=== PATIENT | female | born 1970 | race Caucasian/White ===

== ENCOUNTER 2017-12-31 02:21 | Emergency (ER) | payer SELFPAY ==
[~2017-12-31] VITALS: Ht 157.5 cm; Wt 89.8 kg
[~2017-12-31 02:21] MED LIST: METF1000 PO; NOVN SUBQ; NOVR SUBQ; SIMV20TA1 PO
[2017-12-31 02:28] VITALS: BP 149/85
--- NOTE | 2017-12-31 02:30 | NUR ---
TO ER BED 2
--- NOTE | 2017-12-31 02:33 | NUR ---
47 Y/O F W/C/O DIZZINESS, NAUSEA/VOMITING/ ABD PAIN, AND R EAR PAIN X 3 DAYS. NO OTHER S/S OF DISTRESS NOTED. ER MD MADE AWARE.
[2017-12-31] MEDS ORDERED: KETOROLAC 30 MG/ML VIAL IM ONE (02:50)
[2017-12-31] MEDS ORDERED: ONDANSETRON 4 MG ODT PO ONE (02:50)
[2017-12-31] MEDS ORDERED: PHENYLEPHRINE 0.5% 15 ML BTL NS ONE (02:50)
[2017-12-31] MEDS ORDERED: MECLIZINE 25 MG TAB PO ONE (03:05)
[2017-12-31 03:32] VITALS: BP 139/78
--- NOTE | 2017-12-31 03:32 | NUR ---
Patient discharged with v/s stable. Written and verbal after care instructions given and explained. Patient alert, oriented and verbalized understanding of instructions. Ambulatory with steady gait. All questions addressed prior to discharge. ID band removed. Patient advised to follow up with PMD. Rx of AMOXICILLIN, MEZCLINE, AND ZOFRAN given. Patient educated on indication of medication including possible reaction and side effects. Opportunity to ask questions provided and answered.
== END 2017-12-31 03:32 | disposition home or self-care (01) ==
LOC: MED 02:21
DX: H66.91 Otitis media, unspecified, right ear (principal); R42 Dizziness and giddiness; R11.0 Nausea; I10 Essential (primary) hypertension; E11.9 Type 2 diabetes mellitus without complications; Z79.84 Long term (current) use of oral hypoglycemic drugs
CPT/HCPCS: 96372; 99284; J1885; J8597; S0119

== ENCOUNTER 2019-05-30 00:01 | Emergency (ER) | payer MEDICAID ==
[~2019-05-30] VITALS: Ht 157.5 cm; Wt 91.2 kg
[2019-05-30 00:05] VITALS: BP 183/93
--- NOTE | 2019-05-30 00:15 | NUR ---
PT AMBULATED TO THE LOBBY, VSS
--- NOTE | 2019-05-30 00:44 | NUR ---
PT AMBULATED TO BED #8
--- NOTE | 2019-05-30 00:45 | NUR ---
49 Y/O F PRESENTS TO ED WITH C/O TOOTHACHE X1 MONTH. CITIZ[place] SPEAKING ONLY. 8/10 PAIN, ACHING AND THROBBING. PAIN LOCATED LT SIDE OF MOUTH, RADIATES TO LT EAR. PT HAS NOT BEEN TO SEE DENTIST. PT HAS TRIED HOME REMEDIES WITH NO RELIEF. PT TOOK 800MG IBUPROFEN AT 0800 YESTERDAY. SON AT [facility]. WILL CONTINUE TO MONITOR.
--- NOTE | 2019-05-30 01:02 | NUR ---
PT BP 198/91. DR. CARTER MADE AWARE.
[2019-05-30] MEDS ORDERED: HYDROcodone/APAP 5/325 MG 1 TAB TAB PO ONE ×2 (01:05→01:50)
--- NOTE | 2019-05-30 01:46 | NUR ---
PT STATES PAIN 04/15. MADE MD AWARE.
[2019-05-30 02:13] VITALS: BP 177/76
== END 2019-05-30 02:13 | disposition home or self-care (01) ==
LOC: MED 00:01
DX: K08.89 Other specified disorders of teeth and supporting structures (principal); I10 Essential (primary) hypertension; E11.9 Type 2 diabetes mellitus without complications; Z79.84 Long term (current) use of oral hypoglycemic drugs; Z79.4 Long term (current) use of insulin; Z79.899 Other long term (current) drug therapy
CPT/HCPCS: 99283

== ENCOUNTER 2022-02-06 11:30 | Emergency (ER) | payer MEDICAID ==
[~2022-02-06] VITALS: Ht 160 cm; Wt 84.5 kg
[~2022-02-06 11:30] MED LIST changes: +METF-1274 PO; -METF1000 PO
[2022-02-06 11:32] VITALS: BP 183/101
[2022-02-06] MEDS ORDERED: FLUORESCEIN OPTH STRIP 1 MG OP ONE (13:30)
[2022-02-06] MEDS ORDERED: TETRACAINE HCL/PF 0.5% OPTH 4 ML BTL OP ONE (13:30)
[2022-02-06] MEDS ORDERED: KETOROLAC 30 MG/ML VIAL IM ONE (13:30)
--- NOTE | 2022-02-06 13:35 | NUR ---
CHANTEL Bhatia is evaluating pt at bedside
[2022-02-06] MEDS ORDERED: CYCL-711 PO (14:36)
[2022-02-06] MEDS ORDERED: IBUP-2213 PO (14:36)
--- NOTE | 2022-02-06 14:40 | NUR ---
52 y/o F BIB self from home c/o bilateral ear itching x 2 weeks. Patient A&O4, ambulatory, also reports BOSE, n/v, eye pain. Pt reports nausea/vomiting started 3 days ago and has since self-resolved. Reports eye pain began this morning with drainage. Reports 9/10 eye pain radiating to forehead. Denies LOC, fall/injury, blurry vision, cough, SOB, chest pain, dysuria, urinary symptoms, fever, chills. cardiac monitor in place. BP 183/101. Bed locked in lowest position, side rials x 1. PMH: DM2 Meds: metformin, insulin R NKDA
[2022-02-06 15:00] VITALS: BP 164/90
--- NOTE | 2022-02-06 15:01 | NUR ---
Patient discharged with v/s stable. Written and verbal after care instructions given and explained. Patient alert, oriented and verbalized understanding of instructions. Ambulatory with steady gait. All questions addressed prior to discharge. ID band removed. Patient advised to follow up with PMD. Rx of FLEXERIL,IBUPROFEN given. Patient educated on indication of medication including possible reaction and side effects. Opportunity to ask questions provided and answered.
== END 2022-02-06 15:01 | disposition home or self-care (01) ==
LOC: MED 11:30
DX: H53.143 Visual discomfort, bilateral (principal); M54.6 Pain in thoracic spine; J45.909 Unspecified asthma, uncomplicated; I10 Essential (primary) hypertension; E11.9 Type 2 diabetes mellitus without complications; Z79.4 Long term (current) use of insulin
CPT/HCPCS: 81002; 81025; 96372; 99283; J1885

== ENCOUNTER 2022-02-27 15:55 | Emergency (ER) | payer MEDICAID ==
[~2022-02-27] VITALS: Ht 157.5 cm; Wt 83.5 kg
[~2022-02-27 15:55] MED LIST changes: +CYCL-711 PO; +IBUP-2213 PO
[2022-02-27 16:20] VITALS: BP 155/81
--- NOTE | 2022-02-27 16:20 | NUR ---
52 y/o female, c/o n/v/d, chills, urinary rentention, sweating, body pain, tang that started yesterday at home. denies anyone else sick in household with same s/s. describes pain as dull 8/10, constant. skin is pink/warm/dry. a&o x4 with even and steady gait. lungs clear bl, heart rate even and regular. pt denies any fever, cp, sob, or cough at this time. vss. ermd made aware of pt. pmh: dm2 nka med: denies
[2022-02-27] MEDS ORDERED: cephALEXin 500 MG CAP PO ONE (17:15)
[2022-02-27] MEDS ORDERED: SULF-59 PO (17:15)
[2022-02-27 17:39] VITALS: BP 155/81
--- NOTE | 2022-02-27 17:41 | NUR ---
Patient discharged with v/s stable. Written and verbal after care instructions given and explained. Patient alert, oriented and verbalized understanding of instructions. Ambulatory with steady gait. All questions addressed prior to discharge. ID band removed. Patient advised to follow up with PMD. Rx of sulfamethoxazole (sent) given. Patient educated on indication of medication including possible reaction and side effects. Opportunity to ask questions provided and answered.
== END 2022-02-27 17:41 | disposition home or self-care (01) ==
LOC: MED 15:55
DX: N39.0 Urinary tract infection, site not specified (principal); I10 Essential (primary) hypertension; E11.9 Type 2 diabetes mellitus without complications; Z79.4 Long term (current) use of insulin; Z79.899 Other long term (current) drug therapy; Z98.890 Other specified postprocedural states
CPT/HCPCS: 81002; 81025; 99283

== ENCOUNTER 2022-03-14 22:27 | Emergency (ER) | payer MEDICAID ==
[~2022-03-14] VITALS: Ht 157.5 cm; Wt 83.5 kg
[~2022-03-14 22:27] MED LIST changes: +SULF-59 PO
[2022-03-14 22:35] VITALS: BP 161/81
--- NOTE | 2022-03-14 22:45 | NUR ---
Received in bed 5 with C/O nausea, vomiting x 3 weeks, Patient reported, had nausea, vomiting for 3 weeks, Came to ER on 02/27/22, Patient finished medications, still nausea, vomiting. no diarrhea, no fever. PMHx: DM
--- NOTE | 2022-03-14 22:45 | NUR ---
PT TAKEN TO BED 5
--- NOTE | 2022-03-14 22:58 | NUR ---
Dr. Vaca examining patient.
[2022-03-14] MEDS ORDERED: METOCLOPRAMIDE 10 MG/2 ML INJ VIAL IVP ONE (23:10)
[2022-03-14] MEDS ORDERED: NACL 0.9% 1,000 ML IV ONE (23:10)
[2022-03-14] MEDS ORDERED: diphenhydrAMINE 50 MG/ML VIAL IVP ONE (23:10)
--- NOTE | 2022-03-14 23:29 | NUR ---
LAB AT BEDSIDE
[2022-03-14 23:47] LABS: BASOPHILS % (AUTO) 0.3 % (0.0-2.0); EOSINOPHILS # (AUTO) 0.1 K/uL (0-0.4); EOSINOPHILS % (AUTO) 0.7 % (0.0-4.0); HEMATOCRIT 37.1 % (36-48); HEMOGLOBIN 12.7 g/dL (12.0-16.0); LYMPHOCYTES # (AUTO) 1.7 K/uL (2.5-16.5); LYMPHOCYTES % (AUTO) 21.2 % (20.5-51.1); MEAN CORPUSCULAR HEMOGLOBIN 30 pg (27-31); MEAN CORPUSCULAR HGB CONC 34 g/dL (33-37); MEAN CORPUSCULAR VOLUME 86.5 fL (80-94); MONOCYTES # (AUTO) 0.5 K/uL (0.8-1.0); MONOCYTES % (AUTO) 5.8 % (1.7-9.3); NEUTROPHILS # (AUTO) 5.9 K/uL (1.8-7.7); PLATELET COUNT (AUTO) 272 K/uL (140-450); RED BLOOD CELL COUNT(AUTO) 4.28 MIL/uL (4.20-5.40); RED CELL DISTRIBUTION WIDTH 12.5 % (11.6-13.7); WHITE BLOOD COUNT (AUTO) 8.2 K/uL (4.8-10.8)
[2022-03-15 00:07] LABS: ALBUMIN 3.7 g/dL (3.4-5.0); ANION GAP 12.4 (8-16); CARBON DIOXIDE 29.6 mmol/L (21-32); CREATININE 1.4 mg/dL (0.6-1.3); TOTAL BILIRUBIN 0.3 mg/dL (0.0-1.0)
[2022-03-15] MEDS ORDERED: NACL 0.9% 1,000 ML IV ONE (01:35)
--- NOTE | 2022-03-15 03:20 | NUR ---
AMBULATED TO BR. MYKE OBTAINED AND SENT TO LAB
[2022-03-15 03:37] LABS: APPEARANCE,URINE CLEAR (CLEAR); BILIRUBIN,URINE NEGATIVE (NEGATIVE); BLOOD, URINE NEGATIVE (NEGATIVE); COLOR,URINE YELLOW (YELLOW); LEUKOCYTE ESTERASE ,URINE NEGATIVE (NEGATIVE); NITRITE, URINE NEGATIVE (NEGATIVE); PH,URINE 6.5 (5.0-9.0); UGLUCOSE 2+ (NEGATIVE)
[2022-03-15 03:45] LABS: RBC,URINE NONE SEEN /HPF (0-5); WBC,URINE 0-5 /HPF (0-5)
[2022-03-15] MEDS ORDERED: ONDA-188 SL (03:54)
[2022-03-15] MEDS ORDERED: FAMO-90 PO (03:54)
[2022-03-15 04:30] VITALS: BP 148/76
--- NOTE | 2022-03-15 04:30 | NUR ---
Patient discharged with v/s stable. Written and verbal after care instructions given and explained. Patient alert, oriented and verbalized understanding of instructions. Ambulatory with steady gait. All questions addressed prior to discharge. ID band removed. Patient advised to follow up with PMD. Rx of PEPCID, ZOFRAN given. Patient educated on indication of medication including possible reaction and side effects. Opportunity to ask questions provided and answered.
== END 2022-03-15 04:30 | disposition home or self-care (01) ==
LOC: MED 22:27
DX: E86.0 Dehydration (principal); E11.65 Type 2 diabetes mellitus with hyperglycemia; R10.9 Unspecified abdominal pain; R11.2 Nausea with vomiting, unspecified; M54.50 Low back pain, unspecified; I10 Essential (primary) hypertension; Z79.4 Long term (current) use of insulin; Z79.899 Other long term (current) drug therapy
CPT/HCPCS: 36415; 80053; 81001; 82948; 85025; 96361; 96374; 96375; 99284; J1200; J2765; J7030

== ENCOUNTER 2022-07-23 17:35 | Emergency (ER) | payer MEDICAID ==
[~2022-07-23] VITALS: Ht 152.4 cm; Wt 80.7 kg
[~2022-07-23 17:35] MED LIST changes: +FAMO-90 PO; +ONDA-188 SL; +SIMV-372 PO; -SIMV20TA1 PO
[2022-07-23 17:42] VITALS: BP 137/79
[2022-07-23] MEDS ORDERED: ONDANSETRON 4 MG/2 ML VIAL IVP ONE (18:50)
[2022-07-23] MEDS ORDERED: NACL 0.9% 1,000 ML IV ONE (18:50)
[2022-07-23] MEDS ORDERED: FAMOTIDINE 20 MG/2 ML VIAL IVP ONE (18:55)
[2022-07-23] MEDS ORDERED: DICYCLOMINE 10 MG CAP PO ONE (18:55)
--- NOTE | 2022-07-23 18:59 | NUR ---
PT AMBULATED TO ER BED 2
--- NOTE | 2022-07-23 19:30 | NUR ---
ASSUMED CARE AT THIS TIME. PT A&O X4. C/O ABDOMINAL PAIN.
[2022-07-23 19:31] LABS: BASOPHILS # (AUTO) 0.1 K/uL (0.00-0.22); BASOPHILS % (AUTO) 0.8 % (0.0-2.0); EOSINOPHILS # (AUTO) 0.2 K/uL (0-0.4); EOSINOPHILS % (AUTO) 2.3 % (0.0-4.0); HEMATOCRIT 36.9 % (36-48); HEMOGLOBIN 12.6 g/dL (12.0-16.0); LYMPHOCYTES # (AUTO) 2.3 K/uL (2.5-16.5); LYMPHOCYTES % (AUTO) 30.3 % (20.5-51.1); MEAN CORPUSCULAR HEMOGLOBIN 30 pg (27-31); MEAN CORPUSCULAR HGB CONC 34 g/dL (33-37); MEAN CORPUSCULAR VOLUME 88.3 fL (80-94); MONOCYTES # (AUTO) 0.5 K/uL (0.8-1.0); NEUTROPHILS # (AUTO) 4.6 K/uL (1.8-7.7); NEUTROPHILS % (AUTO) 60.6 % (42.2-75.2); PLATELET COUNT (AUTO) 292 K/uL (140-450); RED BLOOD CELL COUNT(AUTO) 4.18 MIL/uL (4.20-5.40); RED CELL DISTRIBUTION WIDTH 12.6 % (11.6-13.7); WHITE BLOOD COUNT (AUTO) 7.5 K/uL (4.8-10.8)
[2022-07-23 19:31] LABS: APPEARANCE,URINE CLEAR (CLEAR); BILIRUBIN,URINE NEGATIVE (NEGATIVE); BLOOD, URINE TRACE-I (NEGATIVE); COLOR,URINE YELLOW (YELLOW); LEUKOCYTE ESTERASE ,URINE NEGATIVE (NEGATIVE); NITRITE, URINE NEGATIVE (NEGATIVE); UGLUCOSE 3+ (NEGATIVE)
[2022-07-23 19:42] LABS: ACETONE, SERUM NEGATIVE (NEGATIVE)
[2022-07-23 19:49] LABS: ALBUMIN 3.1 g/dL (3.4-5.0); ANION GAP 11.6 (8-16); ASPARTATE AMINOTRANSFERASE 15 U/L (15-37); CARBON DIOXIDE 29.1 mmol/L (21-32); CHLORIDE 97 mmol/L (98-107); CREATININE 0.9 mg/dL (0.6-1.3); GFR ARICAN-AMERICAN 85 mL/min (>90); GLUCOSE 393 mg/dL (74-106); LIPASE 152 U/L (73-393); POTASSIUM 4.7 mmol/L (3.5-5.1); SODIUM SERUM 133 mmol/L (136-145); TOTAL BILIRUBIN 0.2 mg/dL (0.0-1.0); UREA NITROGEN, BLOOD 33 mg/dL (7-18)
[2022-07-23 19:56] LABS: RBC,URINE 0-5 /HPF (0-5); WBC,URINE 0-5 /HPF (0-5)
[2022-07-23 19:57] LABS: OTHER CASTS, URINE None Seen /LPF (None Seen)
[2022-07-23] MEDS ORDERED: ONDANSETRON 4 MG/2 ML VIAL ONE (20:35)
[2022-07-23] MEDS ORDERED: FAMOTIDINE 20 MG/2 ML VIAL ONE (20:36)
[2022-07-23] MEDS ORDERED: DICYCLOMINE 10 MG CAP ONE (20:37)
[2022-07-23] MEDS ORDERED: ONDA-188 SL (21:37)
[2022-07-23 23:03] VITALS: BP 137/79
--- NOTE | 2022-07-23 23:05 | NUR ---
Patient discharged with v/s stable. Written and verbal after care instructions given and explained. Patient verbalized understanding. Ambulatory with to car. All questions addressed prior to discharge. Advised to follow up with PMD.
--- NOTE | 2022-07-27 09:17 | NUR ---
LATE ENTRY. 0.9% NS DISCONTINUED AT 2305 ON 07/23/22
== END 2022-07-23 23:05 | disposition home or self-care (01) ==
LOC: MED 17:35
DX: E11.65 Type 2 diabetes mellitus with hyperglycemia (principal); R10.84 Generalized abdominal pain; I10 Essential (primary) hypertension; Z79.4 Long term (current) use of insulin; Z79.899 Other long term (current) drug therapy
CPT/HCPCS: 36415; 74176; 80053; 81001; 81025; 82009; 83690; 85025; 93005; 96361; 96374; 96375; 99285; J2405; J3490; J7030

== ENCOUNTER 2022-09-21 14:12 | Emergency (ER) | payer MEDICAID ==
[~2022-09-21] VITALS: Ht 157.5 cm; Wt 81.6 kg
[2022-09-21 14:22] VITALS: BP 167/88
[2022-09-21] MEDS ORDERED: NACL 0.9% 1,000 ML IV SCH (14:40)
[2022-09-21] MEDS ORDERED: FAMOTIDINE 20 MG/2 ML VIAL IVP ONE (14:40)
[2022-09-21] MEDS ORDERED: ONDANSETRON 4 MG/2 ML VIAL IVP ONE (14:40)
[2022-09-21 15:08] LABS: BASOPHILS % (AUTO) 0.5 % (0.0-2.0); EOSINOPHILS # (AUTO) 0.2 K/uL (0-0.4); EOSINOPHILS % (AUTO) 3.1 % (0.0-4.0); HEMATOCRIT 35.6 % (36-48); HEMOGLOBIN 12.2 g/dL (12.0-16.0); LYMPHOCYTES # (AUTO) 2.2 K/uL (2.5-16.5); LYMPHOCYTES % (AUTO) 28.5 % (20.5-51.1); MEAN CORPUSCULAR HEMOGLOBIN 29 pg (27-31); MEAN CORPUSCULAR HGB CONC 34 g/dL (33-37); MEAN CORPUSCULAR VOLUME 85.5 fL (80-94); MONOCYTES # (AUTO) 0.5 K/uL (0.8-1.0); NEUTROPHILS # (AUTO) 4.8 K/uL (1.8-7.7); NEUTROPHILS % (AUTO) 61.9 % (42.2-75.2); PLATELET COUNT (AUTO) 268 K/uL (140-450); RED BLOOD CELL COUNT(AUTO) 4.16 MIL/uL (4.20-5.40); RED CELL DISTRIBUTION WIDTH 12.4 % (11.6-13.7); WHITE BLOOD COUNT (AUTO) 7.8 K/uL (4.8-10.8)
[2022-09-21 15:22] LABS: APPEARANCE,URINE CLEAR (CLEAR); BILIRUBIN,URINE NEGATIVE (NEGATIVE); BLOOD, URINE TRACE-I (NEGATIVE); COLOR,URINE YELLOW (YELLOW); LEUKOCYTE ESTERASE ,URINE NEGATIVE (NEGATIVE); NITRITE, URINE NEGATIVE (NEGATIVE); UGLUCOSE 3+ (NEGATIVE)
--- NOTE | 2022-09-21 15:27 | NUR ---
52 y/o female bib self with c/o epigastric pain x 6 months. Per patient, was diagnosed with gallstones 2 weeks ago and was informed to go to ER if symptoms persist. Patient is nauseaous and vomiting. Patient denies any fever or SOB. Patient has chills. Meidcal History: MELODY NKDA
[2022-09-21 15:30] LABS: ALBUMIN 3.6 g/dL (3.4-5.0); ANION GAP 12.4 (8-16); CARBON DIOXIDE 26.9 mmol/L (21-32); CREATININE 0.8 mg/dL (0.6-1.3); POTASSIUM 4.3 mmol/L (3.5-5.1); TOTAL BILIRUBIN 0.2 mg/dL (0.0-1.0)
[2022-09-21 15:36] LABS: OTHER CASTS, URINE None Seen /LPF (None Seen); RBC,URINE 0-5 /HPF (0-5); WBC,URINE 0-5 /HPF (0-5)
--- NOTE | 2022-09-21 17:43 | NUR ---
Ultrasound at bedside.
[2022-09-21 18:21] VITALS: BP 162/83
[2022-09-21] MEDS ORDERED: ONDA-188 SL (18:54)
[2022-09-21] MEDS ORDERED: SUCR1TAB35 PO (18:54)
[2022-09-21] MEDS ORDERED: FAMO-90 PO (18:54)
--- NOTE | 2022-09-21 19:08 | NUR ---
Patient discharged with v/s stable. Written and verbal after care instructions given. Patient alert, oriented and verbalized understanding of instructions. Ambulatory with steady gait. All questions addressed prior to discharge. ID band removed. Patient advised to follow up with PMD. Rx of Pepcid, Zofran and Carafate given. Opportunity to ask questions provided and answered.
== END 2022-09-21 19:08 | disposition home or self-care (01) ==
LOC: MED 14:12
DX: K80.50 Calculus of bile duct without cholangitis or cholecystitis without obstruction (principal); E11.65 Type 2 diabetes mellitus with hyperglycemia; I10 Essential (primary) hypertension; E78.5 Hyperlipidemia, unspecified; Z79.4 Long term (current) use of insulin; Z79.899 Other long term (current) drug therapy
CPT/HCPCS: 36415; 74177; 76705; 80053; 81001; 83690; 85025; 96361; 96374; 96375; 99285; J2405; J3490; J7030; Q0092; Q9967

== ENCOUNTER 2023-01-16 16:27 | Emergency (ER) | payer MEDICAID ==
[~2023-01-16] VITALS: Ht 157.5 cm; Wt 84.8 kg
[~2023-01-16 16:27] MED LIST changes: +SUCR1TAB35 PO
[2023-01-16 16:46] VITALS: BP 147/79
[2023-01-16] MEDS ORDERED: IBUPROFEN 600 MG TAB PO ONE (17:35)
--- NOTE | 2023-01-16 18:01 | NUR ---
AMBULATED TO CHAIR IN NO DISTRESS.
--- NOTE | 2023-01-16 18:14 | NUR ---
VOLAR SPLINT APPLIED TO L WRIST. + CMS.
[2023-01-16] MEDS ORDERED: IBUP-2213 PO (18:21)
--- NOTE | 2023-01-16 18:25 | NUR ---
HENRRY WRAP APPLIED TO L WRIST. + CMS
--- NOTE | 2023-01-16 18:31 | NUR ---
The patient's care was reviewed and supervised by KANDY CARREON RN.
[2023-01-16] MEDS ORDERED: IBUPROFEN 600 MG TAB ONE (19:04)
[2023-01-16 19:15] VITALS: BP 147/79
== END 2023-01-16 19:15 | disposition home or self-care (01) ==
LOC: MED 16:27
DX: M25.532 Pain in left wrist (principal); M25.572 Pain in left ankle and joints of left foot
CPT/HCPCS: 73110; 73610; 73630; 99284

== ENCOUNTER 2023-03-11 17:38 | Emergency (ER) | payer MEDICAID ==
[~2023-03-11] VITALS: Ht 157.5 cm; Wt 79.8 kg
[2023-03-11 17:43] VITALS: BP 139/85; PULSE 90; RESP 17; TEMP 97.4; O2SAT 98
--- NOTE | 2023-03-11 17:53 | NUR ---
PT AMBULATED TO BED 7
[2023-03-11] MEDS ORDERED: FLUORESCEIN OPTH STRIP 1 MG OP ONE (18:00)
[2023-03-11] MEDS ORDERED: TETRACAINE HCL/PF 0.5% OPTH 4 ML BTL OP ONE (18:00)
[2023-03-11 18:01] VITALS: O2SAT 98
--- NOTE | 2023-03-11 18:01 | NUR ---
53 YO F PRESENTS W/LT EYE REDNESS, SWELLING, PAIN X 8DAYS, LT EAR AND THROAT PAIN X 1 DAY. PT STATES SHE SAW PCP WEDNESDAY. PT DENIES INJURY, VISION CHANGES, BOSE, DIZZINESS. SWELLING AND REDNESS NOTED TO LT EYE. SAFETY MAINTAINED. HX: MELODY COCHRAN
[2023-03-11] MEDS ORDERED: IBUPROFEN 600 MG TAB PO ONE (18:05)
[2023-03-11] MEDS ORDERED: TOMOMETER 1 DEV DEV MC ONE (18:09)
--- NOTE | 2023-03-11 18:57 | NUR ---
Patient discharged with v/s stable. Written and verbal after care instructions given and explained. Patient verbalized understanding. Ambulatory with steady gait. All questions addressed prior to discharge. Advised to follow up with PMD.
--- NOTE | 2023-03-11 18:58 | NUR ---
The patient's care was reviewed and supervised by Raven Roque, RN, RN.
== END 2023-03-11 18:57 | disposition home or self-care (01) ==
LOC: MED 17:38
DX: H11.32 Conjunctival hemorrhage, left eye (principal); E11.9 Type 2 diabetes mellitus without complications; I10 Essential (primary) hypertension; Z79.4 Long term (current) use of insulin; Z79.899 Other long term (current) drug therapy
CPT/HCPCS: 99284

== ENCOUNTER 2023-10-16 13:31 | Emergency (ER) | payer MEDICAID ==
[~2023-10-16] VITALS: Ht 157.5 cm; Wt 90.7 kg
[2023-10-16 13:32] VITALS: BP 133/82; PULSE 101; RESP 18; TEMP 98.4; O2SAT 98
[2023-10-16 14:38] LABS: BASOPHILS # (AUTO) 0.1 K/uL (0.00-0.22); BASOPHILS % (AUTO) 0.5 % (0.0-2.0); EOSINOPHILS # (AUTO) 0.1 K/uL (0-0.4); EOSINOPHILS % (AUTO) 1.1 % (0.0-4.0); HEMATOCRIT 37.5 % (36-48); HEMOGLOBIN 12.8 g/dL (12.0-16.0); LYMPHOCYTES # (AUTO) 1.7 K/uL (2.5-16.5); LYMPHOCYTES % (AUTO) 15.9 % (20.5-51.1); MEAN CORPUSCULAR HEMOGLOBIN 30 pg (27-31); MEAN CORPUSCULAR HGB CONC 34 g/dL (33-37); MEAN CORPUSCULAR VOLUME 86.9 fL (80-94); MONOCYTES # (AUTO) 0.6 K/uL (0.8-1.0); NEUTROPHILS % (AUTO) 76.5 % (42.2-75.2); PLATELET COUNT (AUTO) 240 K/uL (140-450); RED BLOOD CELL COUNT(AUTO) 4.32 MIL/uL (4.20-5.40); RED CELL DISTRIBUTION WIDTH 12.8 % (11.6-13.7); WHITE BLOOD COUNT (AUTO) 10.5 K/uL (4.8-10.8)
[2023-10-16 14:53] VITALS: O2SAT 98
[2023-10-16 15:02] LABS: ANION GAP 11.2 (8-16); CARBON DIOXIDE 30.9 mmol/L (21-32); CREATININE 0.9 mg/dL (0.6-1.3); POTASSIUM 5.1 mmol/L (3.5-5.1); TOTAL BILIRUBIN 0.2 mg/dL (0.0-1.0)
[2023-10-16] MEDS: LIDOCAINE 5% 1 EA PATCH TP ONE (15:03)
[2023-10-16] MEDS: KETOROLAC 30 MG/ML VIAL IM ONE (15:05)
[2023-10-16 15:45] VITALS: BP 127/67; PULSE 93; RESP 18; TEMP 98.4
[2023-10-16] MEDS: cephALEXin 500 MG CAP PO ONE (16:40)
[2023-10-16 16:49] VITALS: O2SAT 98
[2023-10-16] MEDS ORDERED: CEPH-588 PO (16:53)
[2023-10-16] MEDS ORDERED: FLUC200T PO (17:04)
[2023-10-16] MEDS ORDERED: IBUP-2213 PO (17:04)
[2023-10-16] MEDS ORDERED: LID5T TP (17:04)
== END 2023-10-16 17:12 | disposition home or self-care (01) ==
LOC: MED 13:31
DX: N12 Tubulo-interstitial nephritis, not specified as acute or chronic (principal); N76.0 Acute vaginitis; E11.9 Type 2 diabetes mellitus without complications; I10 Essential (primary) hypertension; Z79.4 Long term (current) use of insulin; Z79.899 Other long term (current) drug therapy
CPT/HCPCS: 36415; 74176; 80053; 81002; 81025; 82948; 83690; 85025; 96372; 99285; J1885